=== PATIENT | female | born 1990 | race Caucasian/White ===

== ENCOUNTER 2017-04-14 | Emergency (ER) | payer BC, OTHER ==
[~2017-04-14] VITALS: Ht 157.5 cm; Wt 73.0 kg
[2017-04-14 00:03] VITALS: Ht 157.5 cm; Wt 73.0 kg
[2017-04-14] MEDS ORDERED: ACETAMINOPHEN 325 MG TAB PO STA (00:23)
[2017-04-14] MEDS ORDERED: SOD CHLORIDE 0.9% 1,000 ML IV STA (00:23)
[2017-04-14] MEDS ORDERED: ONDANSETRON 4 MG INJ IV STA (00:23)
[2017-04-14 01:00] LABS: ADD SCAN DIFF NO
[2017-04-14 01:01] LABS: BASOPHILS % 0.2 % (0.0-2.0); EOSINOPHILS # 0.1 10^3/ul (0.0-0.5); EOSINOPHILS % 0.7 % (0.0-7.0); HEMATOCRIT 39.2 % (37.0-47.0); HEMOGLOBIN 13.2 g/dl (12.0-16.0); LYMPHOCYTES # 2.1 10^3/ul (0.8-2.9); MEAN CORPUSCULAR HEMOGLOBIN 30.2 pg (29.0-33.0); MEAN CORPUSCULAR HGB CONC 33.7 g/dl (32.0-37.0); MEAN CORPUSCULAR VOLUME 89.7 fl (82.0-101.0); MONOCYTE # 0.9 10^3/ul (0.3-0.9); MONOCYTES % 9.9 % (0.0-11.0); NEUTROPHIL # 5.7 10^3/ul (1.6-7.5); PLATELET COUNT 281 10^3/UL (140-415); RED BLOOD COUNT 4.37 10^6/ul (4.20-5.40); RED CELL DISTRIBUTION WIDTH 12.2 % (11.5-14.5); WHITE BLOOD COUNT 8.8 10^3/ul (4.8-10.8)
--- NOTE | 2017-04-14 01:18 | RADRPT ---
PROCEDURE: US OB. CLINICAL INDICATION: , vaginal bleeding. TECHNIQUE: Multiple sonographic images of the pelvis were obtained. Transabdominal views of the p jw are available for review. The images were reviewed on a PACS workstation. COMPARISON: No prior studies are available for comparison. FINDINGS: There is a single intrauterine . The mean gestational sac diameter measures 1.51 cm, corres ponding to a 5-ndmw-2-day . The crown-rump length equals 0.35 cm which corresponds to a 6- week-0-day gestational age by ultrasound criteria. cardiac activity measures 120 bpm. No sub chorionic hemorrhage is identified. The ovaries are not visualized. The adnexa are unremarkable. There is no free pelvic fluid. IMPRESSION: 1. Single viable intrauterine gestation of approximately 6 weeks 1 day. 2. The estimated date of delivery is 12/07/2017. RPTAT: HTAR .Hugo Hendrickson MD, Date Time Electronically viewed and signed by .Hugo Hendrickson MD, on 04/14/2017 01:18 .R/
[2017-04-14 01:48] LABS: ADD UMIC YES; UR ASCORBIC ACID NEGATIVE (NEGATIVE); UR BACTERIA FEW /HPF (NONE SEEN); UR BILIRUBIN (Dip) NEGATIVE (NEGATIVE); UR BLOOD (Dip) NEGATIVE (NEGATIVE); UR CLARITY SLIGHTLY CLOUDY (CLEAR); UR COLOR YELLOW (YELLOW); UR GLUCOSE (Dip) NEGATIVE (NEGATIVE); UR KETONES (Dip) NEGATIVE (NEGATIVE); UR LEUKOCYTE ESTERASE (Dip) 2+ Leu/ul (NEGATIVE); UR NITRITE (Dip) NEGATIVE (NEGATIVE); UR RBC 2 /HPF (0-5); UR SQUAMOUS EPITHELIAL CELL FEW /HPF (FEW); UR TOTAL PROTEIN (Dip) NEGATIVE (NEGATIVE); UR UROBILINOGEN (Dip) NEGATIVE (NEGATIVE)
[2017-04-14] MEDS ORDERED: PRENAT PO (02:39)
[2017-04-14] MEDS ORDERED: CEPH-443 PO (02:46)
[2017-04-14] MEDS ORDERED: ONDA4TAB11 PO (02:46)
[2017-04-14] MEDS ORDERED: METO10TA92 PO (02:46)
[2017-04-14] MEDS ORDERED: ONDA-43 PO (02:46)
--- NOTE | 2017-04-14 02:51 | ERD ---
ER Documentation Chief Complaint Date/Time DATE: 04/14/17 TIME: 02:47 Chief Complaint c/o abd pain and cramping x 4 days. (+) n/v. (+) 5 wks preg. HPI This 19-year-old female presents with abdominal pain and cramping for 4 days with nausea and vomiting worse in the mornings. She is 5 weeks according to her dates and positive test. She does have follow-up. Denies any fever and chills. Denies any vaginal bleeding. The pain is in her lower and mid abdomen. ROS All systems reviewed and are negative except as per history of present illness. Medications Home Meds Active Scripts Metoclopramide* (Reglan*) 10 Mg Tablet, 10 MG PO Q6H Y for NAUSEA AND OR VOMITING, #20 TAB 1 Refill Prov:VIRGINIA WHITLEY DO 04/14/17 Ondansetron Hcl* (Zofran*) 4 Mg Tab, 4 MG PO Q6H Y for NAUSEA AND OR VOMITING, # 30 TAB 1 Refill Prov:VIRGINIA WHITLEY DO 04/14/17 Ondansetron (Zofran Odt) 4 Mg Tab.rapdis, 4 MG PO Q6 for NAUSEA, #10 Prov:VIRGINIA WHITLEY DO 04/14/17 Cephalexin* (Keflex*) 500 Mg Capsule, 500 MG PO TID for 3 Days, CAP Prov:VIRGINIA WHITLEY DO 04/14/17 Reported Medications Multivit/Min/Fol Ac/Iron/Pren* ( S*) 1 Tab Tab, 1 TAB PO DAILY, TAB 04/14/17 Allergies Allergies: Coded Allergies: No Known Allergy (Unverified , 04/14/17) PMhx/Soc Medical and Surgical Hx: pt denies Medical Hx, pt denies Surgical Hx History of Surgery: No Anesthesia Reaction: No Hx Neurological Disorder: No Hx Respiratory Disorders: No Hx Cardiac Disorders: No Hx Psychiatric Problems: No Hx Miscellaneous Medical Probl: No Hx Alcohol Use: No Hx Substance Use: No Hx Tobacco Use: No Smoking Status: Never smoker Physical Exam Vitals Vital Signs Date Time Temp Pulse Resp B/P Pulse Ox O2 Delivery O2 Flow Rate FiO2 04/14/17 00:03 97.9 83 18 129/71 99 Physical Exam Const: [] No distress Head: Atraumatic Eyes: Normal Conjunctiva ENT: Normal External Ears, Nose and Mouth. Neck: Full range of motion..~ No meningismus. Resp: Clear to auscultation bilaterally Cardio: Regular rate and rhythm, no murmurs Abd: Soft, very mild suprapubic tenderness without guarding or rebound, non distended. Normal bowel sounds Skin: No petechiae or rashes Back: No midline or flank tenderness Ext: No cyanosis, or edema Neur: Awake and alert and oriented 3, no focal deficits Psych: Normal Mood and Affect Result Diagram: 04/14/17 0040 Results 24 hrs Laboratory Tests Test 04/14/17 00:40 04/14/17 01:00 White Blood Count 8.810^3/ul Red Blood Count 4.3710^6/ul Hemoglobin 13.2g/dl Hematocrit 39.2% Mean Corpuscular Volume 89.7fl Mean Corpuscular Hemoglobin 30.2pg Mean Corpuscular Hemoglobin Concent 33.7g/dl Red Cell Distribution Width 12.2% Platelet Count 48747^3/UL Mean Platelet Volume 10.0fl Neutrophils % 65.0% Lymphocytes % 24.0% Monocytes % 9.9% Eosinophils % 0.7% Basophils % 0.2% Nucleated Red Blood Cells % 0.0/100WBC Neutrophils # 5.710^3/ul Lymphocytes # 2.110^3/ul Monocytes # 0.910^3/ul Eosinophils # 0.110^3/ul Basophils # 0.010^3/ul Nucleated Red Blood Cells # 0.010^3/ul Beta HCG, Quantitative 54012.0mIU/ml Urine Color YELLOW Urine Clarity SLIGHTLY CLOUDY Urine pH 6.0 Urine Specific [place] 1.010 Urine Ketones NEGATIVEmg/dL Urine Nitrite NEGATIVEmg/dL Urine Bilirubin NEGATIVEmg/dL Urine Urobilinogen NEGATIVEmg/dL Urine Leukocyte Esterase 2+Sonny/ul Urine Microscopic RBC 2/HPF Urine Microscopic WBC 2/HPF Urine Squamous Epithelial Cells FEW/HPF Urine Bacteria FEW/HPF Urine Hemoglobin NEGATIVEmg/dL Urine Glucose NEGATIVEmg/dL Urine Total Protein NEGATIVEmg/dl Current Medications Medications (Trade) Dose Ordered Sig/Stephanie Route PRN Reason Start Time Stop Time Status Last Admin Dose Admin Sodium Chloride (NS) 1,000 ml @ 1,000 mls/hr Q1H STAT IV 04/14/17 00:23 04/14/17 01:22 DC 04/14/17 01:01 Acetaminophen (Tylenol Tab) 650 mg ONCE STAT PO 04/14/17 00:23 04/14/17 00:26 DC 04/14/17 01:02 Ondansetron HCl (Zofran Inj) 4 mg ONCE STAT IV 04/14/17 00:23 04/14/17 00:26 DC 04/14/17 01:02 Procedures/MDM First trimester with UTI and vomiting. She states that almost every female in her family has had severe nausea and vomiting with her . Ectopic is virtually ruled out with positive intrauterine consistent with beta-hCG peer she likely suffers from hyperemesis gravidarum. In the ER she was given Zofran which resolved her nausea and her pain dissipated. She was also given a Tylenol. She was given IV fluids. Also gave her a gram of Rocephin. I am discharging her with Keflex. The baby appears well by ultrasound. She is in stable condition I am also discharging her with Zofran ODT, Zofran p.o., Reglan. Obstetrics ultrasound interpretation: Live intrauterine of 6 weeks. Departure Diagnosis: Primary Impression: UTI (urinary tract infection) during Additional Impression: Acute vomiting Condition: Stable Patient Instructions: Hyperemesis Gravidarum (Severe Morning Sickness), Understanding Urinary Tract Infections (UTIs) Additional Instructions: Llame al doctor MAANA y sylvie concepcion MIA PARA DENTRO DE 2-3 CORREIA.Dgale a la secretaria que nosotros le instruimos hacer esta mia.Avise o llame si amador condicin se empeora antes de la mia. Regresa aqui si peor o no mejor. VIRGINIA WHITLEY DO Apr 14, 2017 02:50
== END 2017-04-14 03:22 | disposition home or self-care (01) ==
LOC: E/R
DX: O23.41 Unspecified infection of urinary tract in pregnancy, first trimester (principal); O21.9 Vomiting of pregnancy, unspecified; R10.30 Lower abdominal pain, unspecified; Z3A.01 Less than 8 weeks gestation of pregnancy
CPT/HCPCS: 36415; 76801; 81001; 84702; 85025; 86900; 86901; 96374; 99285; J2405; J7030; Z7610